=== PATIENT | female | born 1995 | race African-American/Black ===

== ENCOUNTER 2018-12-08 16:27 | Day surgery (SDC) | payer OTHER ==
[2018-12-08 17:12] VITALS: BMI 33.3
--- NOTE | 2018-12-08 17:12 | PDOC.FPROB ---
FMR OB H&P: Medications - Current Home Medications: Medication Instructions Recorded Confirmed Type Pnv59/Iron,Carb,Fum/FA/Dss/Dha 1 tab PO DAILY 12/08/18 12/08/18 History [Citranatal [place]] Allergies/Adverse Reactions: Allergies Allergy/AdvReac Type Severity Reaction Status Date / Time No Known Allergies Allergy Verified 12/08/18 17:15 FMR OB H&P: A/P - Problem List (1) Status: Acute Discussion: Date/Time: 12/08/18 0002 PCP: Raheel HPI: This is a 22 yo at 31.5 wks presenting for losing her mucous plug this afternoon. Patient denies any bleeding or discharge just thinks she lost her mucous plug while using the restroom this afternoon. She states she feels baby moving often. She thinks she had some Enrique swift contractions yesterday that last about a minute at a time and then go away. She denies any leakage or signs of ROM. She states that the main reason she came in is she got worried when she googled losing mucous plug. She affirms movement, denies cxns, ROM, bleeding/discharge. Denies CARL, visual changes, SOB, or swelling. History: OB hx: 1 Term , treated for delia this PMH: neg PSH: neg Meds: PNV All: NKDA Soc Hx: denies smoking, alcohol, drugs Fam Hx: denies downs, congenital defects REVIEW OF SYSTEMS: Gen: no fever, chills, or sweats Neuro: no numbness/tingling, no weakness, denies headache ENT: denies congestion Eyes: no visual changes Resp: no cough, no SOB, no wheeze Card: denies chest pain, no palpitations GI: no N/V/D, no abdominal pain : no dysuria, no hematuria Skin: no rash, no erythema Psych: denies hx anxiety/depression Vitals: T: 98.6 R: 20 BP: 119/60 P:98 PHYSICAL EXAMINATION: General: NAD, alert and oriented x3 HEENT: EOMI, normal sclera Neck: Supple. Full ROM. Heart/Cardiovascular System: RRR, Cap refill < 3 seconds, no rub, no murmur Lungs/Respiratory System: clear to auscultation bilaterally. No increased work of breathing. Room air. Abdomen/Gastro-Intestinal System: no abdominal tenderness, normal bowel sounds, Gravid Extremities: Warm extremities. No cyanosis or edema. Neuro: No gross deficits appreciated Psychiatry: Awake, Alert and cooperative with exam Skin: No lesions, rashes Musculoskeletal: Full ROM A/P: This is a 14 yo at 31.0 wks presenting for FHT: baseline 150, good variability, no decels, accels present [place]: no contractions # - no contractions on toco - no discharge, bleeding, leakage - tolerated PO sandwich and liquids - patient sent home with labor precautions, all questions answered, will f/u in clinic this week Addendum - Attending - Attending Attestation Date/Time: 12/08/18 9513 I personally evaluated the patient and discussed the management with Dr. Perla. I agree with the History, Examination, Assessment and Plan documented above.
== END 2018-12-08 18:15 | disposition home or self-care (01) ==
LOC: L&D/OP 16:27
PROVIDERS: ATTEND Family Medicine
DX: O99.89 Other specified diseases and conditions complicating pregnancy, childbirth and the puerperium (principal); N89.8 Other specified noninflammatory disorders of vagina; Z3A.31 31 weeks gestation of pregnancy

== ENCOUNTER 2018-12-26 19:20 | Day surgery (SDC) | payer OTHER ==
[2018-12-26 19:53] VITALS: BMI 34.2
--- NOTE | 2018-12-26 20:46 | PDOC.LDHP ---
Labor and Delivery H&P Chief complaint: contractions HPI: 23 y/o at 34w3d, patient of Dr. Pickering, presents with ?ctx for the last 30 mins. She describes it as intermittent low back pain and has not had any more since her arrival. She also complains of pelvic pressure, especially with moving. Denies VB, LOF, UTI sx, constipation or decreased FM. ROS neg for HEENT, CV, pulm, GI, , neuro, psych, skin, musculoskeletal, or constitutional symptoms other than mentioned above. OB History Details: 1 prior term Current complications: none Past Medical History: Denies Current medications: pre-mora vitamins Previous surgical history: none Allergies/Adverse Reactions: Allergies Allergy/AdvReac Type Severity Reaction Status Date / Time No Known Allergies Allergy Verified 12/08/18 17:15 Social history: none - Physical Exam Vital signs reviewed and normal: yes General: NAD, resting Lungs: nonlabored breathing Abdomen: gravid Extremeties: no edema FHT: category 1 (140s, mod variability, + accels, no decels) [place] contractions every: none - Vaginal Exam cm dilated: 0 Effacement: 0% Station: -3 - Assessment 23 y/o at 34w3d with normal discomforts of and no e/o PTL. status reassuring with reactive NST. - Plan -: DC home with precautions. Advised to keep all appointments.
== END 2018-12-26 20:50 | disposition home or self-care (01) ==
LOC: L&D/OP 19:20
PROVIDERS: ATTEND Family Medicine
DX: O47.03 False labor before 37 completed weeks of gestation, third trimester (principal); Z3A.34 34 weeks gestation of pregnancy
CPT/HCPCS: 99282

== ENCOUNTER 2019-01-05 22:13 | Day surgery (SDC) | payer OTHER ==
[2019-01-05 22:37] VITALS: BP 120/67; TEMP 98.1; BMI 35.0
[2019-01-05] MEDS ORDERED: hydrALAZINE 20 MG/ML VIAL SLOW IVP PRN (23:31)
[2019-01-05] MEDS ORDERED: hydrOXYzine 25 MG TAB PO PRN (23:33)
[2019-01-05] MEDS ORDERED: Acetaminophen 325 MG TAB PO PRN (23:33)
--- NOTE | 2019-01-05 23:36 | PDOC.LDHP ---
Labor and Delivery H&P Chief complaint: other (Fall from standing) HPI: 23 yo F presents for fall from standing. Pt reports she slipped on bathtub and fell and hit rt side of ribs. She denies any vaginal bleeding, vaginal discharge , lof and ctx. Reports pos movement. She denies SOB, pleurisy and hemoptysis. Does reports some pain with palpation of rt side mid-axillary line without gross deformity of MSK rib exam. Current gestational age (weeks): 35 (35+5) Grav: 1 Para: 0 Current complications: none Abnormal US findings: No Current medications: pre- vitamins Previous surgical history: none Allergies/Adverse Reactions: Allergies Allergy/AdvReac Type Severity Reaction Status Date / Time No Known Allergies Allergy Verified 01/05/19 22:34 Social history: none - Physical Exam Vital signs reviewed and normal: yes General: NAD, resting Heart: RRR Lungs: nonlabored breathing Abdomen: NTTP Extremeties: no edema FHT: category 1 (baseline 140 pos accels no late or variable decels), variability present [place] contractions every: None - OB Labs Blood type: unknown RH: unknown Antibody Screen: unknown HIV: unknown RPR: unknown HEPSAg: unknown 1 hour GCT: unknown GBS: unknown - Plan -: 1) Mechanical fall - fall occurred approx 2130 - EFM for 4 hours from fall, if stable ok for dc to home - tylenol #3 for pain - monitor for s/s distress/abruption, currently asymptomatic and benign abdominal exam Addendum - Attending - Attending Attestation Date/Time: 01/07/19 1024 I personally evaluated the patient and discussed the management with Dr. Mota I agree with the History, Examination, Assessment and Plan documented above with any addition or exceptions noted below. s/p fall at 2100 hours. hit rib cage in toilet when slipped in bathroom. no abdominal trauma. vital signs: 123/70 96 18 98.1 nad ribs ttp along costchondral border on pt rt. No pain elicited with pressure manipulation of ribs away from site of impact. fth baseline 140s with mod ltv +accels, no decels tocometer quiet no evidence of contractions at 4hr meng post fall risk for abruption or labor small. d/c home with tylenol 3 #10 f/u with dr camarena
[2019-01-05] MEDS ORDERED: Acetaminophen/Codeine 30-300mg Tablet PO PRN (23:52)
== END 2019-01-06 01:15 | disposition home or self-care (01) ==
LOC: L&D/OP 22:13
PROVIDERS: ATTEND Family Medicine
DX: O99.89 Other specified diseases and conditions complicating pregnancy, childbirth and the puerperium (principal); M79.621 Pain in right upper arm; Z3A.35 35 weeks gestation of pregnancy; W18.2XXA Fall in (into) shower or empty bathtub, initial encounter
CPT/HCPCS: 99282

== ENCOUNTER 2019-01-19 22:21 | Day surgery (SDC) | payer OTHER ==
[2019-01-19 23:05] VITALS: BMI 35.4
[2019-01-20] MEDS ORDERED: hydrALAZINE 20 MG/ML VIAL SLOW IVP PRN (01:19)
--- NOTE | 2019-01-20 01:22 | PDOC.FPROB ---
FMR OB H&P: HPI - History of Present Illness Chief Complaint: Contractions Indentification: 23 year old at 37.5 wks History of Present Illness: 23 year old at 37.5 wks presents with contractions that she reports have been every 8 minutes since 21:30. Patient states they are fairly painful. She denies any vaginal bleeding, vaginal discharge, LoF. Patient with no significant PMH or OB Hx. Patient endorses movement. Primary Care Physician: Dr. Pickering FMR OB H&P: Current - Care : 2 Para: 1001 Gestational age: 37.5 wks Due date: 02/04/2019 FMR OB H&P: History - Past Medical History PMH: ADHD - OB History OB History: GBS positive - [employer] History [employer] History: Denies STD's or abnormal Pap smears - Surgical History Sx History: Denies - Social History Social History: Denies alcohol, tobacco, or drug use - Family History Family History: Denies any significant FH FMR OB H&P: Medications - Current Home Medications: Medication Instructions Recorded Confirmed Type Pnv59/Iron,Carb,Fum/FA/Dss/Dha 1 tab PO DAILY 12/08/18 01/19/19 History [Citranatal [place]] Allergies/Adverse Reactions: Allergies Allergy/AdvReac Type Severity Reaction Status Date / Time No Known Allergies Allergy Verified 01/19/19 23:04 FMR OB H&P: ROS - Review of Systems General: denies: fever/chills, weight/appetite/sleep changes Eyes: denies: vision changes, scotomas ENT: denies: nasal congestion, rhinorrhea, sore throat Cardiovascular: denies: chest pain, palpitation, edema Respiratory: denies: cough, congestion, shortness of breath Gastrointestinal: denies: cramping, nausea, vomiting, diarrhea Genitourinary (Female): reports: contractions. denies: dysuria, vaginal discharge, vaginal bleeding Musculoskeletal: denies: pain, stiffness Neurologic: denies: numbness, syncope Integumentary: denies: itching, rash, lesions FMR OB H&P: Vital Signs - Maternal Vital signs: BP 116/69 Pulse 81 Pulse ox 97% RR 18 Temp 98.6F - Heart Tones Baseline: 140 Variability: moderate Acceleration: present Deceleration: absent Category: category 1 [place] contractions every: Irregular q4-8 min FMR OB H&P: Physical Exam - Physical Exam General: NAD, awake, alert and oriented HEENT: MMM, grossly normal vision, grossly normal hearing Heart: RRR General: no respiratory distress, no wheezing Abdomen: soft, gravid, non-tender Musculoskeletal: pulses present, FROM in all four extremities Neurological: no tremor, no focal deficit Skin: no rash, capillary refill <2 seconds Lymphatic: no unusual bruising or bleeding, no purpura Psychiatric: intact recent and remote memory Deviation from normal: Flat affect - Pelvic Exam Vulva: normal hair distribution, no discharge, no blood SVE: .3 Presentation: Cephalic FMR OB H&P: A/P - Problem List (1) Term Current Visit: Yes Status: Acute Code(s): Z34.90 - ENCNTR FOR SUPRVSN OF NORMAL , UNSP, UNSP TRIMESTER (2) ADHD (attention deficit hyperactivity disorder) Current Visit: Yes Status: Acute (3) GBS (group B Streptococcus carrier), +RV culture, currently Current Visit: Yes Status: Acute Code(s): O99.820 - STREPTOCOCCUS B CARRIER STATE COMPLICATING Disposition: 23 year old at 37.5 wks presents with contractions 1. Term sIUP - cervical check on arrival . - Cat I strip - [place] shows irregular contractions q3-8 min - Patient in no visible distress with contractions - Cervical exam 2 hours later unchanged from previous exam - Patient does not appear to be progressing in labor at this time 2. ADHD - Management per PCP 3. GBS positive - Will need intrapartum antibiotics Dispo: Plan for d/c home with labor precautions. Discussion: Date/Time: 01/20/19 0120 This H&P was discussed with Dr. Del Rosario who agrees with the above documentation and plan. Signature: Maia Cortez, PGY-3
--- NOTE | 2019-01-20 01:38 | PDOC.EVN ---
Event Note - Event Note Event Note: OBGYN Attending Time: 134 CC: CTCX 23 yo at 37 weeks seen for CTX. CX / with no CX change in L&D Obs I have reviewed the case/patient and agree with Dr Cortez DSX DX: early term, latent labor. GBS pos. OK for outpatient care Vitals stable and normal
== END 2019-01-20 01:35 | disposition home or self-care (01) ==
LOC: L&D/OP 22:21
PROVIDERS: ATTEND Family Medicine
DX: O47.1 False labor at or after 37 completed weeks of gestation (principal); O99.820 Streptococcus B carrier state complicating pregnancy; O99.343 Other mental disorders complicating pregnancy, third trimester; F90.9 Attention-deficit hyperactivity disorder, unspecified type; Z3A.37 37 weeks gestation of pregnancy
CPT/HCPCS: 99283

== ENCOUNTER 2019-01-28 03:11 | Inpatient (IN) | payer OTHER ==
[2019-01-28 03:37] LABS: Hemoglobin 11.5 g/dL (12.0-16.0); Mean Corpuscular HGB CONC 32.3 g/dL (32.0-36.0); Mean Corpuscular Hemoglobin 25.6 pg (27.0-31.0); Mean Corpuscular Volume 79.4 fL (78.0-98.0); Mean Platelet Volume 8.6 fL (7.4-10.4); Platelet Count 223 thou/uL (130-400); RBC Distribution Width 12.6 % (11.5-14.5); Red Blood Cell (RBC) Count 4.48 mill/uL (4.20-5.40); White Blood Cell (WBC) Count 12.4 thou/uL (4.8-10.8)
[2019-01-28] MEDS ORDERED: Fentanyl 4 mcg/Bup 0.1% Cadd 100 ML ONE (03:37)
[2019-01-28] MEDS ORDERED: Promethazine HCl 25 MG/ML VIAL IM PRN ×3 (03:38→07:47)
[2019-01-28] MEDS ORDERED: Butorphanol Tartrate 1 MG/ML VIAL SLOW IVP PRN (03:38)
[2019-01-28] MEDS ORDERED: hydrALAZINE 20 MG/ML VIAL SLOW IVP PRN ×2 (03:38→07:47)
[2019-01-28] MEDS ORDERED: Lactated Ringer's 1,000 ML IV SCH (03:38)
[2019-01-28] MEDS ORDERED: Ondansetron PF 4 MG/2 ML Vial IVP PRN ×3 (03:38→07:47)
[2019-01-28] MEDS ORDERED: Acetaminophen 500 MG TAB PO PRN (03:38)
[2019-01-28 03:39] VITALS: BMI 35.6
[2019-01-28] MEDS ORDERED: Methylergonovine 0.2 MG/ML VIAL IM PRN (03:45)
[2019-01-28] MEDS ORDERED: Ibuprofen 800 MG TAB PO PRN (03:45)
[2019-01-28] MEDS ORDERED: NS w/ Oxytocin 10 units 500 ML IV SCH ×2 (03:45)
[2019-01-28] MEDS ORDERED: Lidocaine 1% (PF) 30 ML VIAL SC PRN (03:45)
[2019-01-28] MEDS ORDERED: Misoprostol 200 MCG TAB RC PRN (03:45)
[2019-01-28] MEDS ORDERED: NS / Oxytocin 40 units/1000ml 1,000 ML IV SCH ×2 (03:45→07:47)
[2019-01-28] MEDS ORDERED: Penicillin G Potassium 5 MILL.UNITS in Sodium Chloride 0.9% 100 ML IVPB SCH (03:45)
[2019-01-28] MEDS ORDERED: Carboprost 250 MCG/ML AMP IM PRN (03:45)
[2019-01-28] MEDS ORDERED: Penicillin G 2.5 MILL.units 2.5 MILL.UNITS in Premix Bag 1 BAG IVPB SCH (04:00)
[2019-01-28 04:08] LABS: HBSAg Index 0.17 S/CO (0-0.99); Hep B Surf Ag Non-Reactive S/CO (NonReactive)
[2019-01-28 04:24] LABS: Syphilis Antibody Nonreactive (Nonreactive); Syphilis Antibody Index 0.08 S/CO (<1.00 Non-Reactive)
[2019-01-28] MEDS ORDERED: diphenhydrAMINE 50 MG/ML VIAL IVP PRN (04:31)
[2019-01-28] MEDS ORDERED: ePHEDrine/0.9% NaCl/PF SYRINGE 50 mg/10 ml SLOW IVP PRN (04:31)
[2019-01-28] MEDS ORDERED: Naloxone HCl 0.4 mg/ml Vial IVP PRN ×2 (04:31)
[2019-01-28] MEDS ORDERED: Lactated Ringer's 500 ML IV PRN (04:31)
[2019-01-28] MEDS ORDERED: Acetaminophen 325 MG TAB PO PRN (04:31)
[2019-01-28] MEDS ORDERED: Communication Order-Pharmacy FS SCH (04:45)
[2019-01-28] MEDS ORDERED: Fentanyl 4 mcg/Bupivacaine 0.1% Cassette 100 ML EPIDURAL SCH (04:45)
[2019-01-28] MEDS ORDERED: Lidocaine 1% (PF) 30 ML VIAL ONE (05:03)
[2019-01-28] MEDS ORDERED: NS / Oxytocin 40 units/1000ml 1,000 ML ONE (05:03)
[2019-01-28] MEDS ORDERED: Milk Of Magnesia 30 ML UDCUP PO PRN (07:47)
[2019-01-28] MEDS ORDERED: Benzocaine-Menthol 82.5 ML CAN TOP PRN (07:47)
[2019-01-28] MEDS ORDERED: Bisacodyl 10 MG SUPP PR PRN (07:47)
[2019-01-28] MEDS ORDERED: Preparation H Ointment 28 GM TUBE PR PRN (07:47)
[2019-01-28] MEDS ORDERED: HYDROcodone/Acetaminophen 5/325 mg Tablet PO PRN (07:47)
[2019-01-28] MEDS ORDERED: Lanolin Ointment 7 GM TUBE TOP PRN (07:47)
[2019-01-28] MEDS ORDERED: Adacel (T-DAP) 0.5 ML SYRINGE IM ONE (07:47)
[2019-01-28] MEDS ORDERED: diphenhydrAMINE 25 MG CAP PO PRN (07:47)
[2019-01-28] MEDS ORDERED: Bupivacaine/Epinephrine 0.25% 30 ML VIAL ONE (08:00)
[2019-01-28] MEDS: Prenatal Vitamin 1 TAB PO SCH (09:32)
[2019-01-28] MEDS: Ibuprofen 800 MG TAB PO SCH ×2 (09:32→17:20)
[2019-01-28] MEDS: Docusate Calcium (SURFAK) 240 MG CAP PO SCH ×2 (09:32→21:49)
[2019-01-28] MEDS: Ferrous Sulfate 325 MG TAB PO SCH ×2 (09:54→17:20)
[2019-01-28] MEDS: HYDROcodone/Acetaminophen 5/325 mg Tablet PO PRN ×2 (17:18→22:43)
[2019-01-29] MEDS: Ibuprofen 800 MG TAB PO SCH ×3 (01:29→17:41)
[2019-01-29 05:02] LABS: Hemoglobin 10.5 g/dL (12.0-16.0); Mean Corpuscular HGB CONC 31.2 g/dL (32.0-36.0); Mean Corpuscular Hemoglobin 24.9 pg (27.0-31.0); Mean Corpuscular Volume 79.8 fL (78.0-98.0); Mean Platelet Volume 8.5 fL (7.4-10.4); Platelet Count 191 thou/uL (130-400); RBC Distribution Width 12.6 % (11.5-14.5); Red Blood Cell (RBC) Count 4.22 mill/uL (4.20-5.40); White Blood Cell (WBC) Count 11.5 thou/uL (4.8-10.8)
[2019-01-29] MEDS: Ferrous Sulfate 325 MG TAB PO SCH ×2 (08:31→17:13)
[2019-01-29] MEDS: Prenatal Vitamin 1 TAB PO SCH (08:32)
[2019-01-29] MEDS: Docusate Calcium (SURFAK) 240 MG CAP PO SCH ×2 (08:32→21:20)
[2019-01-29] MEDS: HYDROcodone/Acetaminophen 5/325 mg Tablet PO PRN ×2 (08:32→15:00)
[2019-01-30] MEDS: HYDROcodone/Acetaminophen 5/325 mg Tablet PO PRN (01:19)
[2019-01-30] MEDS: Ibuprofen 800 MG TAB PO SCH ×2 (01:19→11:22)
[2019-01-30] MEDS: Ferrous Sulfate 325 MG TAB PO SCH (07:09)
[2019-01-30 08:23] VITALS: BP 121/69; TEMP 98.3
[2019-01-30] MEDS: Docusate Calcium (SURFAK) 240 MG CAP PO SCH (11:22)
[2019-01-30] MEDS: Prenatal Vitamin 1 TAB PO SCH (11:22)
== END 2019-01-30 12:20 | disposition home or self-care (01) | DRG 807 ==
LOC: L&D/OP 03:11 → L&D 03:37 → 3SW 06:53
PROVIDERS: ADMIT Family Medicine; ATTEND Family Medicine
PROC: 10E0XZZ Delivery of Products of Conception, External Approach (ICD-10-PCS; principal; 2019-01-28)
PROC: 0W8NXZZ Division of Female Perineum, External Approach (ICD-10-PCS; 2019-01-28)
DX: O99.824 Streptococcus B carrier state complicating childbirth (principal); Z37.0 Single live birth; O99.344 Other mental disorders complicating childbirth; F32.9 Major depressive disorder, single episode, unspecified; Z3A.39 39 weeks gestation of pregnancy; O70.0 First degree perineal laceration during delivery
CPT/HCPCS: 36415; 85027; 86780; 86850; 86900; 86901; 87340; 99285; J2001; J2540; J3490

== ENCOUNTER 2019-04-06 00:54 | Emergency (ER) | payer OTHER ==
[2019-04-06 02:45] LABS: Bilirubin Negative (Negative); Blood, Urine Negative (Negative); Clarity Clear (Clear); Glucose, Urine (Dipstick) Normal (Negative); Leukocyte Negative Leu/uL (Negative); Nitrite Negative (Negative); Protein, Urine (Dipstick) Negative (Neg-Trace); Urobilinogen Normal mg/dL (Less than 2)
[2019-04-06 02:48] LABS: Pregnancy Test - Urine (BHCG) Negative (Negative); Pregu Control Background? CLEAR/WHITE (CLR/WHITE); Pregu Control Bar Appear? YES (CONTROL BAR); Specific Gravity 1.005 (1.002-1.036)
[2019-04-06 03:01] LABS: Amphetamine Not Detected (NotDetected); Barbiturates Screen Not Detected (NotDetected); Benzodiazepine Screen Not Detected (NotDetected); Cocaine Metabolite Screen Not Detected (NotDetected); Medtox Control Line Valid? VALID (VALID); Medtox Reader # READER 4; Methadone Not Detected (NotDetected); Methamphetamine Not Detected (NotDetected); Opiate Screen Not Detected (NotDetected); Oxycodone Screen Not Detected (NotDetected); Phencyclidine (PCP) Not Detected (NotDetected); THC/Cannabinoid Screen Not Detected (NotDetected); Tricyclic Screen Not Detected (NotDetected)
== END 2019-04-06 03:50 | disposition home or self-care (01) ==
LOC: ERS 00:54
DX: F10.129 Alcohol abuse with intoxication, unspecified (principal); F90.9 Attention-deficit hyperactivity disorder, unspecified type
CPT/HCPCS: 80306; 81003; 81025; 99284

== ENCOUNTER 2019-08-26 13:44 | Day surgery (SDC) | payer SELFPAY ==
--- NOTE | 2019-08-26 14:43 | PDOC.FPROB ---
FMR OB H&P: HPI - History of Present Illness Chief Complaint: Abdominal Pain, Emesis History of Present Illness: Pt is a 23 yo at 24 weeks, LESLY 12/16/19, who presents to the emergency department for back pain, lower abdominal pain, and 2 episodes of emesis. Pain started yesterday around 2200. She took tylenol at 2300 to alleviate pain and has no repeated. Her pain is constant and worse with palpation. She denies urinary symptoms, upper respiratory symptoms, SOB. She does not have significant WOUND CARE SPECIALIST history. Her previous 2 deliveries were non-complicated and vaginal. OBGYN: [facility] FMR OB H&P: Current - Care : 3 Para: 2001 Gestational age: 24.0 wks Due date: 12/16/19 Course/Complications: Denies - OB Labs Blood type: unknown RH: unknown Antibody Screen: unknown HIV: unknown RPR: unknown HepBsAg: unknown Quad screen: unknown Urine drug screen: not done Gonorrhea: unknown Chlamydia: unknown GBS: unknown FMR OB H&P: History - Past Medical History PMH: none - OB History OB History: 2 prior vaginal deliveries w/o complications - WOUND CARE SPECIALIST History WOUND CARE SPECIALIST History: denies hx of STI's - Surgical History Sx History: None - Social History Social History: Denies alcohol, drugs, tobacco - Family History Family History: Non-contributory FMR OB H&P: Medications - Current Home Medications: Medication Instructions Recorded Confirmed Type Pnv59/Iron,Carb,Fum/FA/Dss/Dha 1 tab PO DAILY 12/08/18 01/28/19 History [Citranatal [place]] Ferrous Sulfate [Feosol] 325 mg PO BID-WM #60 tab 01/30/19 Rx Ibuprofen [Motrin] 800 mg PO 0100,0900,1700 #30 tab 01/30/19 Rx Allergies/Adverse Reactions: Allergies Allergy/AdvReac Type Severity Reaction Status Date / Time No Known Allergies Allergy Verified 08/24/19 09:03 FMR OB H&P: ROS - Review of Systems General: reports: weight/appetite/sleep changes. denies: fever/chills, fatigue Eyes: denies: eye pain, vision changes ENT: denies: nasal congestion, rhinorrhea, ear pain Cardiovascular: denies: chest pain, palpitation, edema Respiratory: denies: cough, congestion, shortness of breath Gastrointestinal: denies: abdominal pain, bloating, nausea, vomiting, diarrhea, constipation Genitourinary (Female): denies: incontinence, dysuria, hematuria, polyuria, hesitancy Musculoskeletal: denies: pain, stiffness Neurologic: denies: numbness, seizures Integumentary: denies: itching, rash Endocrine: denies: polydipsia, polyuria Hematologic/Lymphatic: denies: prolonged or excessive bleeding Psychological: reports: anxiety. denies: depression FMR OB H&P: Vital Signs - Maternal Vital signs: 106/52 148 99.1 F - Heart Tones Variability: moderate Acceleration: absent Deceleration: absent FMR OB H&P: Physical Exam - Physical Exam General: NAD, awake, alert and oriented HEENT: PERRLA, EOMI Neck: FROM, no JVD Heart: RRR, normal S1/S2 General: CTAB, no respiratory distress, good air movement Abdomen: soft, gravid, bowel sound present Deviation from normal: tender to light palpation, no rebound tenderness Musculoskeletal: pulses present, FROM in all four extremities Deviation from normal: Tenderness to paravertebral musculature, difficult to assess CVA Tenderness Neurological: cranial nerves II through XII intact, sensation to pain,touch and proprioception grossly normal Skin: no rash, capillary refill <2 seconds Lymphatic: no purpura, no petechia Psychiatric: good judgement and insight, normal mood and affect FMR OB H&P: A/P - Problem List (1) Emesis Status: Acute Code(s): R11.10 - VOMITING, UNSPECIFIED (2) Low back pain Status: Acute Code(s): M54.5 - LOW BACK PAIN (3) Status: Acute Disposition: Pt is a 24 wk , LESLY 12/16/19, who presents to the emergency department for : # Second Trimester w/ MSK, low back tenderness # Pelvic Tenderness Difficult to assess for CVA tenderness due to MSK pain. Will order an UA to r/o at UTI as source of pain. Pelvic tenderness could be secondary to ligament pain. She has no rebound tenderness, mild tenderness to deep palpation but bearable. She does have appendix, gallbladder but this is not likely source. Pt does not appear toxic. - UA pending - administered 1 L LR Dispo: triage, follow up UA Discussion: Date/Time: 08/26/19 9710 This H&P was discussed with Dr. Edwards who agrees with the above documentation and plan. Addendum - Attending - Attending Attestation Date/Time: 08/26/19 3278 I personally evaluated the patient and discussed the management with Dr. Alcala I agree with the History, Examination, Assessment and Plan documented above with any addition or exceptions noted below. Pt is a 23yo female with a 12 yr history of cutting. Fresh cuts (with in recent days to week as scabs are present on multiple sites on left writs) were visualized on the left wrist scabbed. no signs of infection. PT confirmed she cuts herself when she is stressed and that she has been having problems with her boyfriend. She denies homocidal /suicidal ideation. She has no desire to hurt herself beyond the self cutting. She denies every receiving counselling or treatment for problems in the past. PE pt has paravertebral tenderness mid thoracic to buttocks. no clear cva ttp. tenderness equal bilaterally. Difficult to assess if referred muscular pain or true cva tenderness. Ua was positive for [place]ich[place]. no bacteria, no nitrites, PH 6, no rbc. I discussed these findings with the pt. She denies sexual contact with anyone other than the father of her baby. She has an RX for metronidazole 500mg po bid x7days. She is to refrain from sexual contact with her boyfriend until he and she are fully treated. Pt has a thermometer at her house and has been counselled to take her temprature if she starts to feel ill or back pain worsen. recommendations for her to call her OB provider [facility] to make a follow up appt has also been made. PT denied any change in discharge. GC Ct was not collected at this time.
[2019-08-26] MEDS ORDERED: Lactated Ringer's 1,000 ML IV SCH (14:45)
[2019-08-26 15:09] VITALS: BMI 31.9
[2019-08-26 15:25] LABS: Bilirubin Negative (Negative); Blood, Urine Negative (Negative); Clarity Clear (Clear); Glucose, Urine (Dipstick) Normal (Negative); Leukocyte 500 Leu/uL (Negative); Nitrite Negative (Negative); Protein, Urine (Dipstick) Negative (Neg-Trace); RBC/HPF 0-3 HPF (0-3); Squamous Epithelial 0-3 HPF (0-3); Urobilinogen Normal mg/dL (Less than 2); WBC/HPF Greater than 50 HPF (0-3)
[2019-08-26] MEDS ORDERED: Acetaminophen 500 MG TAB PO SCH (15:30)
[2019-08-26 15:31] LABS: Bacteria/HPF None Seen HPF (None Seen); Trichomonas/HPF 1+ HPF (None Seen)
== END 2019-08-26 16:12 | disposition home health service (06) ==
LOC: L&D/OP 13:44
DX: O21.2 Late vomiting of pregnancy (principal); O99.89 Other specified diseases and conditions complicating pregnancy, childbirth and the puerperium; M54.5 Low back pain; R10.30 Lower abdominal pain, unspecified; O98.312 Other infections with a predominantly sexual mode of transmission complicating pregnancy, second trimester; A59.9 Trichomoniasis, unspecified; Z3A.24 24 weeks gestation of pregnancy; Z91.5 Personal history of self-harm
CPT/HCPCS: 81001; 96360; 96361; 99283

== ENCOUNTER 2019-12-08 15:44 | Day surgery (SDC) | payer OTHER ==
[2019-12-08 16:05] VITALS: BP 104/70; TEMP 98.7; BMI 35.6
--- NOTE | 2019-12-08 16:25 | PDOC.LDHP ---
Labor and Delivery H&P Chief complaint: contractions HPI: Pt is a 23 yo at 38.6 wks, LESLY 12/16/19, who presents for contractions starting at 1200 this afternoon. She states she feels contractions every 7 mins and characterized by pelvic pressure. She denies LOF, discharge, dysuria, hematuria, CARL, chest pain, SOB, LE edema, RUQ pain. Due date: 12/16/19 Grav: 3 Para: 2 OB History Details: 2 prior , GBS positive Current complications: none Past Medical History: Denies Current medications: pre- vitamins Previous surgical history: none Allergies/Adverse Reactions: Allergies Allergy/AdvReac Type Severity Reaction Status Date / Time No Known Allergies Allergy Verified 12/08/19 16:00 Social history: none - Physical Exam Vital signs reviewed and normal: yes General: NAD, resting Heart: RRR Lungs: CTAB Abdomen: other (mildly tender in lower quadrant) Extremeties: no edema FHT: category 1, variability present [place] contractions every: irritability - Plan Plan: observation in L&D -: Pt is a 23 yo at 38.6 wks, LESLY 12/16/19, who presents for contractions: # IUP # Contractions 2.5 cm/50%/-2: nurse checked so she will recheck in 2 hours and assess for change. Recheck 1800. - observe on L&D # GBS Positive - will need penicillin during delivery # Hx of Cutting Dispo: observe pt for cervical change
--- NOTE | 2019-12-09 06:33 | PRG ---
DATE OF SERVICE: 12/08/2019 TIME OF SERVICE: 18:05. PRESENTING COMPLAINT: Contractions at 38 to 39 weeks. HISTORY OF PRESENT ILLNESS: Ms. Reza is a 23-year-old, 3, para 2, who sees Dr. Pickering at [facility]. She reports contractions since noon. Denies rupture of membranes. Reports an active fetus. The patient is O positive. Antibody negative. Pap negative. Rubella immune. VDRL nonreactive. Group B strep negative. However, she has a history of group B strep colonization in previous pregnancies. She has a history of spontaneous vaginal deliveries in the past x2. She has an EDC of 711 based on a 13-week three-day ultrasound. She transferred for history of microcephaly, seeing the [facility]; however, it appears from the record that infant is considered small but not IUGR at this time. PAST MEDICAL HISTORY: None. PAST SURGICAL HISTORY: None. ALLERGIES: DENIES. MEDICATIONS: vitamins. SOCIAL HISTORY: Denies tobacco, alcohol, or IV drug abuse. FAMILY HISTORY: Noncontributory. REVIEW OF SYSTEMS: Noncontributory. PHYSICAL EXAMINATION: GENERAL: female, in no acute distress. VITAL SIGNS: Temperature 98.8, pulse 85, respirations 18, blood pressure 104/76. HEENT: Within normal limits. LUNGS: Clear to auscultation bilaterally. HEART: Regular rate and rhythm. ABDOMEN: Soft, nontender. Fundal height 37. FHTs 140s. PELVIC: Vulva without lesions. Vagina without discharge. Cervical exam by RN 2 hours apart was 250, -2, cephalic, bag of water intact, ballots. LABORATORY STUDIES: monitoring was carried out for greater than 2 hours, which revealed category 1 tracing. Positive accelerations, no decelerations. Contractions q5 to 10 minutes. IMPRESSION: [place] contractions with possible early latent labor. No evidence of active labor with reassuring heart rate tracing. PLAN: Discharge home. Keep scheduled followup with Dr. Pickering. ER precautions for onset of labor, rupture of membranes, or decreased movement. Job ID: [id number]
== END 2019-12-08 18:14 | disposition home or self-care (01) ==
LOC: L&D/OP 15:44
PROVIDERS: ATTEND Family Medicine
DX: O47.1 False labor at or after 37 completed weeks of gestation (principal); O99.820 Streptococcus B carrier state complicating pregnancy; Z3A.38 38 weeks gestation of pregnancy; Z91.5 Personal history of self-harm
CPT/HCPCS: 99283

== ENCOUNTER 2019-12-10 18:12 | Inpatient (IN) | payer OTHER ==
[~2019-12-10 18:12] MED LIST: Bupivacaine HCl 0.5%/Epinephrine 1:200,000/PF 30 ml Vial ONE; Bupivacaine/Epinephrine 0.25% 30 ML VIAL ONE
[2019-12-10 18:40] VITALS: BMI 35.2
[2019-12-10] MEDS ORDERED: hydrALAZINE 20 MG/ML VIAL SLOW IVP PRN ×2 (20:27→20:53)
[2019-12-10] MEDS ORDERED: Ibuprofen 800 MG TAB PO PRN (20:53)
[2019-12-10] MEDS ORDERED: Butorphanol Tartrate 1 MG/ML VIAL SLOW IVP PRN (20:53)
[2019-12-10] MEDS ORDERED: Ondansetron PF 4 MG/2 ML Vial IVP PRN ×2 (20:53→22:37)
[2019-12-10] MEDS ORDERED: HYDROcodone/Acetaminophen 5/325 mg Tablet PO PRN (20:53)
[2019-12-10] MEDS ORDERED: Lidocaine 1% (PF) 30 ML VIAL SC PRN (20:53)
[2019-12-10] MEDS ORDERED: NS / Oxytocin 40 units/1000ml 1,000 ML IV PRN ×2 (20:53→23:12)
[2019-12-10] MEDS ORDERED: Penicillin G Potassium 5 MILL.UNITS VIAL ONE ×2 (20:55→20:56)
[2019-12-10] MEDS ORDERED: NS w/ Oxytocin 10 units 500 ML ONE (20:56)
--- NOTE | 2019-12-10 20:56 | PRG ---
DATE OF SERVICE: PRIMARY OB: Dr. Cortez Pickering. CHIEF COMPLAINT: Abdominal pain. HISTORY OF PRESENT ILLNESS: Patient is a 23-year-old, G3, P2 female with an intrauterine at 39 weeks and 3 days, presenting to Labor and Delivery with uterine contractions that have picked up since about noon today. She reports that they are about 7 minutes apart and have come to 4 minutes apart with increasing intensity. Patient reports some bloody show this morning, but denies any kian vaginal bleeding. She also denies leakage of fluid. She denies any fever, cough, headache, chest pain, shortness of breath, nausea, vomiting, diarrhea, or constipation. She denies any new rashes, hip problems, knee problems, muscle weakness, vaginal bleeding, leakage of fluid, change in discharge. PAST MEDICAL HISTORY: Negative. PAST SURGICAL HISTORY: Negative. ALLERGIES: NO KNOWN DRUG ALLERGIES. MEDICATIONS: vitamins. SOCIAL HISTORY: Denies drug, alcohol, or tobacco use. OB HISTORY: This patient was seen at one time by [facility] for concerns of microcephaly. However, it appears the patient is considered small for gestational age and not IUGR. OB LABS: Blood type is O positive. Antibody screen is negative. She is rubella immune. VDRL nonreactive and GBS negative. Her last vaginal was 10 months ago. PHYSICAL EXAMINATION: VITAL SIGNS: Blood pressure 107/51, heart rate of 94, respiratory rate of 16, saturating 100% on room air, and temperature 98.4. GENERAL: She appears to be in no acute distress. She is alert, oriented, cooperative, and pleasant to interact with. HEENT: Head is normocephalic and atraumatic. LUNGS: Clear to auscultation bilaterally. HEART: Has regular rate and rhythm. ABDOMEN: Gravid, soft, and nontender. EXTREMITIES: Nontender and nonedematous. : Per nursing staff. Cervix is 4 cm dilated, 50% effaced, -1 station, which is a change from two days ago, where she was 2.5, 50, -2. heart tracing shows the fetus with a baseline in the 120s with moderate long-term variability, positive 15 x 15 accelerations, no decelerations. Tocometer is picking up contractions very well, but it does appear she is having contractions possibly about every 4 to 6 minutes. ASSESSMENT AND PLAN: Patient is a 23-year-old, G3, P2 female with an intrauterine at 39 weeks and 3 days, here for evaluation of labor. Patient has had interval cervical change from two days ago at her previous visit here in Labor and Delivery. We will be reevaluating cervical change in a couple of hours to see if she is making active change at this time. Patient is GBS negative. Fetus has a category 1 tracing and reactive NST. Pt admitted to L&D to Dr Pickering for labor Job ID: [id number] MTDD
[2019-12-10] MEDS ORDERED: Lactated Ringer's 1,000 ML IV SCH ×2 (21:00→22:00)
[2019-12-10] MEDS ORDERED: Penicillin G Potassium 5 MILL.UNITS in Sodium Chloride 0.9% 100 ML IVPB SCH (21:00)
[2019-12-10] MEDS ORDERED: Penicillin G 2.5 MILL.units 2.5 MILL.UNITS in Premix Bag 1 BAG IVPB SCH (21:00)
[2019-12-10] MEDS ORDERED: Fentanyl 4 mcg/Bup 0.1% Cadd 100 ML ONE (21:27)
[2019-12-10 21:34] LABS: Hemoglobin 10.8 g/dL (12.0-16.0); Mean Corpuscular HGB CONC 31.2 g/dL (32.0-36.0); Mean Corpuscular Volume 76.9 fL (78.0-98.0); Mean Platelet Volume 8.9 fL (7.4-10.4); Platelet Count 185 thou/uL (130-400); RBC Distribution Width 13.4 % (11.5-14.5); White Blood Cell (WBC) Count 10.3 thou/uL (4.8-10.8)
[2019-12-10 22:14] LABS: Syphilis Antibody Nonreactive (Nonreactive); Syphilis Antibody Index 0.06 S/CO (<1.00 Non-Reactive)
[2019-12-10] MEDS ORDERED: diphenhydrAMINE 50 MG/ML VIAL IVP PRN (22:37)
[2019-12-10] MEDS ORDERED: EPHEDRINE 25 MG/5 ML SYRINGE SLOW IVP PRN (22:37)
[2019-12-10] MEDS ORDERED: Lactated Ringer's 500 ML IV PRN (22:37)
[2019-12-10] MEDS ORDERED: Promethazine HCl 25 MG/ML VIAL IM PRN (22:37)
[2019-12-10] MEDS ORDERED: Acetaminophen 325 MG TAB PO PRN (22:37)
[2019-12-10] MEDS ORDERED: Naloxone HCl 0.4 mg/ml Vial IVP PRN ×2 (22:37)
[2019-12-10] MEDS ORDERED: Fentanyl 4 mcg/Bupivacaine 0.1% Cassette 100 ML EPIDURAL SCH (22:45)
[2019-12-10] MEDS ORDERED: Communication Order-Pharmacy FS SCH (22:45)
[2019-12-10] MEDS ORDERED: Methylergonovine 0.2 MG/ML VIAL IM PRN (23:12)
[2019-12-10] MEDS ORDERED: Misoprostol 200 MCG TAB PR PRN (23:12)
[2019-12-10] MEDS ORDERED: Diphenoxylate HCl/Atropine Tablet PO PRN (23:12)
[2019-12-10] MEDS ORDERED: Carboprost 250 MCG/ML AMP IM PRN (23:12)
[2019-12-10] MEDS ORDERED: NS w/ Oxytocin 10 units 500 ML IV SCH ×2 (23:15→23:30)
[2019-12-11 00:47] LABS: HBSAg Index 0.11 S/CO (0-0.99); Hep B Surf Ag Non-Reactive S/CO (NonReactive)
[2019-12-11] MEDS ORDERED: Lanolin Ointment 7 GM TUBE TOP PRN (02:36)
[2019-12-11] MEDS ORDERED: diphenhydrAMINE 25 MG CAP PO PRN (02:36)
[2019-12-11] MEDS ORDERED: Milk Of Magnesia 30 ML UDCUP PO PRN (02:36)
[2019-12-11] MEDS ORDERED: Ondansetron PF 4 MG/2 ML Vial IVP PRN (02:36)
[2019-12-11] MEDS ORDERED: Bisacodyl 10 MG SUPP PR PRN (02:36)
[2019-12-11] MEDS ORDERED: NS / Oxytocin 40 units/1000ml 1,000 ML IV SCH (02:36)
[2019-12-11] MEDS ORDERED: hydrALAZINE 20 MG/ML VIAL SLOW IVP PRN (02:36)
[2019-12-11] MEDS ORDERED: Benzocaine-Menthol 82.5 ML CAN TOP PRN (02:36)
[2019-12-11] MEDS: Ibuprofen 800 MG TAB PO SCH ×3 (04:05→20:42)
[2019-12-11] MEDS: HYDROcodone/Acetaminophen 5/325 mg Tablet PO PRN ×4 (04:06→22:01)
[2019-12-11] MEDS: Ferrous Sulfate 325 MG TAB PO SCH ×2 (07:36→17:21)
[2019-12-11] MEDS ORDERED: Adacel (T-DAP) 0.5 ML SYRINGE IM ONE (09:00)
[2019-12-11] MEDS: Docusate Calcium (SURFAK) 240 MG CAP PO SCH ×2 (09:03→20:42)
[2019-12-11] MEDS: Prenatal Vitamin 1 TAB PO SCH (09:03)
[2019-12-12] MEDS: Ibuprofen 800 MG TAB PO SCH ×3 (05:46→21:33)
[2019-12-12] MEDS: Ferrous Sulfate 325 MG TAB PO SCH ×2 (07:58→16:42)
[2019-12-12] MEDS: Prenatal Vitamin 1 TAB PO SCH (07:59)
[2019-12-12] MEDS: Docusate Calcium (SURFAK) 240 MG CAP PO SCH ×2 (07:59→21:33)
[2019-12-12] MEDS: HYDROcodone/Acetaminophen 5/325 mg Tablet PO PRN (08:00)
[2019-12-12 22:56] VITALS: TEMP 98.3
[2019-12-13] MEDS: Ibuprofen 800 MG TAB PO SCH (05:56)
[2019-12-13 07:36] VITALS: BP 98/51
[2019-12-13] MEDS: Ferrous Sulfate 325 MG TAB PO SCH (09:06)
[2019-12-13] MEDS: Docusate Calcium (SURFAK) 240 MG CAP PO SCH (09:07)
[2019-12-13] MEDS: Prenatal Vitamin 1 TAB PO SCH (09:07)
== END 2019-12-13 12:26 | disposition home or self-care (01) | DRG 807 ==
LOC: L&D/OP 18:12 → L&D 23:24 → 3SW 12-11 03:31
PROVIDERS: ADMIT Family Medicine; ATTEND Family Medicine
PROC: 10E0XZZ Delivery of Products of Conception, External Approach (ICD-10-PCS; principal; 2019-12-10)
DX: O36.5930 Maternal care for other known or suspected poor fetal growth, third trimester, not applicable or unspecified (principal); Z37.0 Single live birth; O99.344 Other mental disorders complicating childbirth; F90.9 Attention-deficit hyperactivity disorder, unspecified type; Z3A.39 39 weeks gestation of pregnancy
CPT/HCPCS: 36415; 51702; 85027; 86780; 86850; 86900; 86901; 87340; 99285; J0670; J2540; J2590

== ENCOUNTER 2021-06-18 16:36 | Emergency (ER) | payer OTHER ==
[2021-06-18 17:12] LABS: #Basophils 0.1 thou/uL (0.0-0.2); #Eosinphils 0.1 thou/uL (0.0-0.7); #Lymphocytes 1.7 thou/uL (1.20-3.40); #Monocytes 0.3 thou/uL (0.11-0.59); #Neutrophils 5.6 thou/uL (1.40-6.50); %Basophils 0.9 % (0.0-1.0); %Eosinophils 0.7 % (0.0-10.0); %Lymphocytes 21.4 % (21.0-51.0); %Neutrophils 73.1 % (42.0-75.0); Hemoglobin 14.1 g/dL (12.0-16.0); Mean Corpuscular HGB CONC 32.4 g/dL (32.0-36.0); Mean Corpuscular Hemoglobin 27.2 pg (27.0-31.0); Mean Corpuscular Volume 83.9 fL (78.0-98.0); Mean Platelet Volume 9.1 fL (7.4-10.4); Platelet Count 208 thou/uL (130-400); RBC Distribution Width 12.5 % (11.5-14.5); Red Blood Cell (RBC) Count 5.19 mill/uL (4.20-5.40); White Blood Cell (WBC) Count 7.7 thou/uL (4.8-10.8)
[2021-06-18 17:32] LABS: ALT (SGPT) 11 U/L (8-55); AST (SGOT) 16 U/L (5-34); Albumin 4.3 g/dL (3.5-5.0); Alkaline Phosphatase 92 U/L (40-110); Anion Gap 10 mmol/L (10-20); BUN (Urea Nitrogen) 11 mg/dL (7.0-18.7); Bilirubin, Total 0.3 mg/dL (0.2-1.2); Calc. Creatinine Clearance 0 mL/min (70-130); Calcium 10.1 mg/dL (7.8-10.44); Carbon Dioxide 27 mmol/L (22-29); Chloride 107 mmol/L (98-107); Globulin 3.7 g/dL (2.4-3.5); Glucose 106 mg/dL (70-105); Potassium 3.9 mmol/L (3.5-5.1); Sodium 140 mmol/L (136-145)
[2021-06-18 19:07] LABS: Bilirubin Negative (Negative); Blood, Urine Negative (Negative); Clarity Clear (Clear); Glucose, Urine (Dipstick) Normal (Negative); Ketone, Urine Negative (Negative); Leukocyte 500 Leu/uL (Negative); Nitrite Negative (Negative); Protein, Urine (Dipstick) 10 mg/dL (Neg-Trace); RBC/HPF 0-3 HPF (0-3); Specific Gravity, Urine 1.029 (1.002-1.036)
[2021-06-18 19:08] LABS: Pregnancy Test - Urine (BHCG) Negative (Negative); Pregu Control Background? CLEAR/WHITE (CLR/WHITE); Pregu Control Bar Appear? YES (CONTROL BAR); Specific Gravity 1.029 (1.002-1.036)
[2021-06-18 19:14] LABS: Bacteria/HPF None Seen HPF (None Seen)
[2021-06-18 19:22] LABS: BHCG - Serum Negative (NEGATIVE); Pregs Control Background? CLEAR/WHITE (CLR/WHITE); Pregs Control Bar Appear? YES (CONTROL BAR)
[2021-06-18] MEDS ORDERED: cefTRIAXone\\ROCEPHIN 500 MG VIAL ONE (20:20)
[2021-06-18] MEDS ORDERED: Ketorolac Tromethamine 30 MG/ML VIAL ONE (20:20)
[2021-06-24 21:02] LABS: Chlamydia by PCR Inconclusive (NotDetected); GC by PCR Inconclusive (NotDetected)
== END 2021-06-18 21:04 | disposition home or self-care (01) ==
LOC: ERS 16:36
DX: N72 Inflammatory disease of cervix uteri (principal)
CPT/HCPCS: 36415; 76856; 80053; 81003; 81015; 81025; 84703; 85025; 87086; 87480; 87491; 87510; 87591; 87660; 96365; 96375; J0696; J1885

== ENCOUNTER 2021-11-24 13:21 | Outpatient (CLI) | payer OTHER | END 2021-11-24 13:22 | disposition home or self-care (01) | LOC: BICULT 13:21 | PROVIDERS: ATTEND Family Medicine | DX: O44.42 Low lying placenta NOS or without hemorrhage, second trimester (principal); O32.2XX0 Maternal care for transverse and oblique lie, not applicable or unspecified; Z3A.20 20 weeks gestation of pregnancy | CPT/HCPCS: 76805 ==

== ENCOUNTER 2023-05-31 14:03 | Emergency (ER) | payer OTHER ==
[2023-05-31] MEDS ORDERED: Ondansetron PF 4 MG/2 ML Vial ONE ×2 (15:41→16:39)
[2023-05-31 16:22] LABS: #Monocytes 0.3 thou/uL (0.11-0.59); #Neutrophils 2.1 thou/uL (1.40-6.50); %Basophils 0.6 % (0.0-1.0); %Eosinophils 0.9 % (0.0-10.0); %Lymphocytes 25.5 % (21.0-51.0); %Monocytes 10.1 % (0.0-10.0); %Neutrophils 62.6 % (42.0-75.0); Hematocrit 45.2 % (36.0-47.0); Mean Corpuscular Hemoglobin 25.5 pg (27.0-31.0); Mean Corpuscular Volume 82.5 fl (78.0-98.0); Platelet Count 192 10x3/uL (130-400); RBC Distribution Width 14.1 % (11.5-14.5); Red Blood Cell (RBC) Count 5.48 mill/uL (4.20-5.40); White Blood Cell (WBC) Count 3.4 10x3/uL (4.8-10.8)
[2023-05-31 16:23] LABS: SARS-CoV-2 NAA Rapid Test Not Detected (NotDetected)
[2023-05-31 17:53] LABS: Albumin 4.2 g/dL (3.5-5.0)
[2023-05-31 17:55] LABS: Calcium 8.4 mg/dL (7.8-10.44); Chloride 106 mmol/L (98-107); Potassium 3.6 mmol/L (3.5-5.1); Sodium 137 mmol/L (136-145)
[2023-05-31 17:56] LABS: Globulin 2.9 g/dL (2.4-3.5); Glucose 63 mg/dL (70-105); Protein, Total 7.1 g/dL (6.0-8.3)
[2023-05-31 17:57] LABS: Anion Gap 14 mmol/L (10-20); Carbon Dioxide 21 mmol/L (22-29)
[2023-05-31 17:58] LABS: Bilirubin, Total 0.3 mg/dL (0.2-1.2)
[2023-05-31 17:59] LABS: Alkaline Phosphatase 75 U/L (40-110); Calc. Creatinine Clearance 0 mL/min (70-130); Estimated GFR 107
[2023-05-31 18:00] LABS: BUN (Urea Nitrogen) 5 mg/dL (7.0-18.7)
[2023-05-31 18:01] LABS: AST (SGOT) 18 U/L (5-34)
[2023-05-31 18:02] LABS: ALT (SGPT) 10 U/L (8-55); Lipase 21 U/L (8-78)
[2023-05-31] MEDS ORDERED: Ketorolac Tromethamine 30 MG (1 mL) VIAL ONE (18:56)
[2023-05-31 19:05] LABS: Bilirubin Negative (Negative); Blood, Urine Negative (Negative); CAUTI Indications for Culture Fever or rigors; Clarity Clear (Clear); Glucose, Urine (Dipstick) Normal (Negative); Ketone, Urine Negative (Negative); Leukocyte 500 Leu/uL (Negative); Nitrite Negative (Negative); Protein, Urine (Dipstick) Negative (Neg-Trace); RBC/HPF 0-3 HPF (0-3); Renal Epithelial 0-3 HPF (None Seen); Specific Gravity, Urine 1.009 (1.002-1.036); Urobilinogen Normal mg/dL (Less than 2)
[2023-05-31 19:07] LABS: Bacteria/HPF 1+ HPF (None Seen)
[2023-05-31 19:08] LABS: Urine Culture Reflex Yes Yes
[2023-05-31] MEDS ORDERED: Metoclopramide HCl 10 MG (2 mL) VIAL ONE (19:23)
== END 2023-05-31 22:11 | disposition home or self-care (01) ==
LOC: ERS 14:03
DX: J10.1 Influenza due to other identified influenza virus with other respiratory manifestations (principal); N39.0 Urinary tract infection, site not specified
CPT/HCPCS: 36415; 71045; 80053; 81001; 83605; 83690; 85025; 87086; 96361; 96365; 96375; 96376; J1885; J2405; J2765

== ENCOUNTER 2025-02-09 16:37 | Emergency (ER) | payer SELFPAY ==
[2025-02-09] MEDS ORDERED: Dexamethasone 10 MG/ML VIAL ONE (21:15)
== END 2025-02-09 22:02 | disposition home or self-care (01) ==
LOC: ERS 16:37
DX: R05.9 Cough, unspecified (principal); R11.0 Nausea; J02.9 Acute pharyngitis, unspecified
CPT/HCPCS: 71046; 87428; J1100